=== PATIENT | female | born 1990 | race Caucasian/White ===

== ENCOUNTER 2017-11-20 18:59 | Emergency (ER) | payer SELFPAY ==
[~2017-11-20] VITALS: Ht 157.5 cm; Wt 61.6 kg
[2017-11-20] MEDS ORDERED: KEFLEX500 MG PO (21:14)
[2017-11-20 21:36] VITALS: BP 147/92
== END 2017-11-20 21:36 | disposition home or self-care (01) ==
LOC: EME 18:59
DX: S80.212A Abrasion, left knee, initial encounter (principal); S50.312A Abrasion of left elbow, initial encounter; S81.012A Laceration without foreign body, left knee, initial encounter; V18.0XXA Pedal cycle driver injured in noncollision transport accident in nontraffic accident, initial encounter; Y93.55 Activity, bike riding; Z23 Encounter for immunization; F17.200 Nicotine dependence, unspecified, uncomplicated; Z88.0 Allergy status to penicillin
CPT/HCPCS: 99281; 99284